=== PATIENT | male | born 1990 | race Caucasian/White ===

== ENCOUNTER 2016-12-07 19:09 | Emergency (ER) | payer SELFPAY ==
[2016-12-07 19:24] VITALS: BP 136/83
--- NOTE | 2016-12-07 19:27 | EDM.PDOC ---
ED HPI GENERAL MEDICAL PROBLEM - General Chief Complaint: ENT Problem Stated Complaint: SORE THROAT Time Seen by Provider: 12/07/16 19:26 - History of Present Illness INITIAL COMMENTS - FREE TEXT/NARRATIVE: 26-year-old male presents to the emergency room with a sore throat. Patient has worsening sore throat is had this for almost a month. Skin to the point where he has pain trying to swallow. Denies any throat swelling. Just has discomfort with strenuous wall he denies any fevers or chills sinus pressure. However, he is having some nasal congestion and some postnasal drip. Patient has a history of recurrent strep infections. Past medical history is otherwise unremarkable he has no diabetes heart problems breathing difficulties or stomach difficulties. Throat Pain Score (Numeric/FACES): 10 - Related Data Allergies Allergy/AdvReac Type Severity Reaction Status Date / Time No Known Allergies Allergy Verified 12/07/16 19:18 Home Meds: Home Meds Amoxicillin 500 mg PO TID #30 tab 12/07/16 [Rx] ED ROS ENT - Review of Systems Review Of Systems: See Below Constitutional: Reports: No Symptoms HEENT: Reports: Rhinitis, Throat Pain. Denies: Ear Pain, Eye Pain, Sinus Problem, Throat Swelling Respiratory: Reports: No Symptoms Cardiovascular: Reports: No Symptoms GI/Abdominal: Reports: No Symptoms : Reports: No Symptoms ED EXAM, ENT - Physical Exam Exam: See Below Exam Limited By: No Limitations General Appearance: Alert, No Apparent Distress Eye Exam: Bilateral Eye: Normal Inspection Ears: Normal External Exam, Normal Canal, Normal TMs Nose: Normal Inspection, Normal Mucousa, Clear Rhinorrhea, Other (Sinuses nontender with percussion) Mouth/Throat: Normal Inspection, Normal Gums, Normal Lips, Normal Oropharynx, Normal Teeth, Other (He has some postnasal drip) Head: Atraumatic, Normocephalic Neck: Normal Inspection, Supple, Non-Tender, Full Range of Motion. No: Lymphadenopathy (L), Lymphadenopathy (R) Respiratory/Chest: No Respiratory Distress, Lungs Clear, Normal Breath Sounds Cardiovascular: Normal Peripheral Pulses, Regular Rate, Rhythm, No Edema GI/Abdominal: Normal Bowel Sounds, Soft, Non-Tender Course - Vital Signs Last Recorded V/S: Last Vital Signs Temp 37.2 C 12/07/16 19:18 Pulse 77 09/14/17 19:18 Resp 18 12/07/16 19:18 BP 136/83 12/07/16 19:18 Pulse Ox 98 12/07/16 19:18 - Orders/Labs/Meds Orders: Active Orders 24 hr Category Date Time Status CULTURE STREP A CONFIRMATION [RM] Stat Lab 12/07/16 20:01 Results STREP SCRN A RAPID W CULT CONF [RM] Stat Lab 12/07/16 20:01 Results - Re-Assessments/Exams Free Text/Narrative Re-Assessment/Exam: 12/07/16 21:12 Rapid strep negative. However he's had worsening symptoms last month we'll treat him for prolonged URI. With amoxicillin 500 mg 3 times a day for 10 days and he should use Maalox initially to calm down his throat. Patient has been informed that were waiting on a strep culture. Departure - Departure Time of Disposition: 21:12 Disposition: Home, Self-Care 01 Clinical Impression: Pharyngitis, URI (upper respiratory infection) - Discharge Information Prescriptions: Amoxicillin 500 mg PO TID #30 tab Referrals: PCP,None [Primary Care Provider] - Forms: ED Department Discharge Additional Instructions: Return to the emergency room with any questions problems worsening symptoms. You been started on amoxicillin as an antibiotic take one 3 times a day until all gone. Pickup some Maalox this is [id number] use this 4 times a day before drinking and eating to see if it will numb up the back your throat. Follow-up in the Hospital clinic early next week for recheck. [phone] - My Orders Last 24 Hours: My Active Orders 12/07/16 20:01 CULTURE STREP A CONFIRMATION [RM] Stat STREP SCRN A RAPID W CULT CONF [RM] Stat - Assessment/Plan Last 24 Hours: My Active Orders 12/07/16 20:01 CULTURE STREP A CONFIRMATION [RM] Stat STREP SCRN A RAPID W CULT CONF [RM] Stat
== END 2016-12-07 21:24 | disposition home or self-care (01) ==
LOC: JD.ED 19:09
DX: J02.9 Acute pharyngitis, unspecified (principal)
CPT/HCPCS: 87081; 87430; 99283